=== PATIENT | male | born 1960 | race Caucasian/White ===

== ENCOUNTER 2025-09-07 15:38 | Emergency (ER) | payer MEDICARE ==
[2025-09-07] MEDS ORDERED: Lidocaine 1% PF 5 ML VIAL ONE (15:55)
== END 2025-09-07 16:45 | disposition home or self-care (01) ==
LOC: MADERS 15:38
DX: S01.81XA Laceration without foreign body of other part of head, initial encounter (principal); I10 Essential (primary) hypertension; W11.XXXA Fall on and from ladder, initial encounter; Z23 Encounter for immunization; Z79.899 Other long term (current) drug therapy
CPT/HCPCS: 12014; 70450; 90471; 90715

== ENCOUNTER 2025-09-15 13:45 | Emergency (ER) | payer MEDICARE ==
[2025-09-15] MEDS ORDERED: Bacitracin 1 PK ONE (14:14)
== END 2025-09-15 14:16 | disposition home or self-care (01) ==
LOC: MADERS 13:45
DX: S01.81XD Laceration without foreign body of other part of head, subsequent encounter (principal); I10 Essential (primary) hypertension; W22.8XXD Striking against or struck by other objects, subsequent encounter